=== PATIENT | male | born 1955 | race Caucasian/White ===

== ENCOUNTER 2021-09-16 06:25 | Day surgery (SDC) | payer MEDICARE, BC ==
[2021-09-16] VITALS (18 sets, daily range): BP systolic 98–182; BP diastolic 56–97
[~2021-09-16] VITALS: Ht 165.1 cm; Wt 67.4 kg
[2021-09-16] MEDS ORDERED: LEVO50TA PO (06:59)
[2021-09-16] MEDS ORDERED: LISI20TA28 PO (06:59)
[2021-09-16] MEDS ORDERED: normal saline 1000ml 1,000 ML IV PRN (07:10)
[2021-09-16] MEDS ORDERED: LIDOcaine 1%/PF 5ML 10 MG/ML VIAL ONE (08:57)
[2021-09-16] MEDS ORDERED: fentaNYL/PF 50MCG/1 ML 2ML syringe ONE (09:09)
[2021-09-16] MEDS ORDERED: HYDROcodone/acetaminophen 5mg/325mg tablet PO PRN (09:15)
[2021-09-16] MEDS ORDERED: morphine 4 MG/ML inj SYRINge IV PRN (09:15)
== END 2021-09-16 14:00 | disposition home or self-care (01) ==
LOC: SSTAY O 06:25
PROVIDERS: ATTEND Radiology Vascular & Interventional Radiology
DX: R91.1 Solitary pulmonary nodule (principal); Z79.899 Other long term (current) drug therapy
CPT/HCPCS: 32408; 71045; J3010; J3490; J7030; 77012; 88173; 88305; A4615